=== PATIENT | female | born 1975 | race Caucasian/White ===

== ENCOUNTER → 2018-04-27 | Outpatient (CLI) | payer MEDICAID, OTHER ==
--- NOTE | 2018-04-27 13:51 | REP ---
Chest two views HISTORY: Shortness of breath Comparison: 05/14/2015 The lungs are clear. The heart is normal in size. The pulmonary vasculature is normal in appearance. The bony structure is intact. IMPRESSION: No acute disease. Electronically Signed by Jadon Solano MD 04/27/2018 01:43 P
== END ==
LOC: M LRY 13:05
PROVIDERS: ATTEND Physician Assistant
DX: R05 Cough (principal)

== ENCOUNTER → 2019-01-11 | Outpatient (CLI) | payer OTHER ==
--- NOTE | 2019-01-11 14:59 | REP ---
Cervical spine seven views: There are no comparison studies. Vertebral body heights are not alignment are normal C1-C7. T1 is obscured by the shoulders. On the lateral views. There is no listhesis on flexion or extension. There is degenerative disc disease at multiple levels from C4-C7. The prevertebral soft tissues are unremarkable. Facets are normally aligned. The odontoid view is unremarkable. There is mild bony foraminal encroachment from uncinate spurring on the left at C 05/06 and on the right at C5-6. Impression: Multilevel degenerative disc disease. Mild bilateral bony foraminal encroachment from uncinate spurring at C5-6. T1 is obscured by the shoulders. Otherwise, negative C-spine. Electronically Signed by Wilberto Boyd MD 01/11/2019 02:50 P
== END ==
LOC: M LRY 10:05
PROVIDERS: ATTEND Physician Assistant Medical
DX: M50.30 Other cervical disc degeneration, unspecified cervical region (principal)

== ENCOUNTER → 2020-07-12 | Outpatient (REF) | payer OTHER, MEDICAID | LOC: M SFHCWAGY 13:18 | PROVIDERS: ATTEND Nurse Practitioner Family | DX: Z12.4 Encounter for screening for malignant neoplasm of cervix (principal); Z11.3 Encounter for screening for infections with a predominantly sexual mode of transmission; Z77.9 Other contact with and (suspected) exposures hazardous to health ==

== ENCOUNTER 2021-12-20 23:07 | Emergency (ER) | payer OTHER, MEDICAID ==
[~2021-12-20] VITALS: Ht 165.1 cm; Wt 69.3 kg
[2021-12-20] MEDS ORDERED: CLAR10CA3 PO (23:17)
[2021-12-20] MEDS ORDERED: BUSP5TA PO (23:17)
[2021-12-20] MEDS ORDERED: PARO30TA3 PO (23:17)
[2021-12-21 00:33] LABS: ALBUMIN 3.7 GM/DL (3.2-5.2); ALT/SGPT 146 U/L (12-78); BILIRUBIN,DIRECT 0.4 MG/DL (0.0-0.2); BILIRUBIN,TOTAL 0.6 MG/DL (0.2-1.0); BLOOD UREA NITROGEN 13 MG/DL (7-18); CALCIUM LEVEL 8.7 MG/DL (8.5-10.1); CARBON DIOXIDE LEVEL 28 MEQ/L (21-32); CHLORIDE LEVEL 104 MEQ/L (98-107); CREATININE FOR GFR 0.62 MG/DL (0.55-1.30); GLOMERULAR FILTRATION RATE > 60.0 (>58); GLUCOSE, FASTING 113 MG/DL (70-100); LIPASE 88 U/L (73-393); SODIUM LEVEL 136 MEQ/L (136-145); TOTAL PROTEIN 7.2 GM/DL (6.4-8.2)
[2021-12-21 00:37] LABS: BASO % 0.3 % (0.0-1.0); EOS % 0.2 % (0.0-3.0); HEMATOCRIT 36.5 % (36.0-47.0); LYMPH % 7.4 % (24.0-44.0); MEAN CORPUSCULAR HEMOGLOBIN 32.3 pg (27.0-33.0); MEAN CORPUSCULAR HGB CONC 32.9 g/dl (32.0-36.5); MEAN CORPUSCULAR VOLUME 98.1 fl (80.0-96.0); MONO # 0.5 10^3/uL (0.0-0.8); MONO % 3.5 % (2.0-8.0); NEUTROPHILS # 12.1 10^3/uL (1.5-8.5); NEUTROPHILS % 88.3 % (36.0-66.0); PLATELET COUNT, AUTOMATED 278 10^3/uL (150-450); RED BLOOD COUNT 3.72 10^6/uL (4.00-5.40); WHITE BLOOD COUNT 13.7 10^3/uL (4.0-10.0)
[2021-12-21] MEDS ORDERED: PIPERACILLIN/TAZOBACTAM SOD 3.375 GM in D5W MINI-BAG PLUS 50 ML IV ONE (02:15)
[2021-12-21] MEDS ORDERED: MORPHINE 4 MG/ML 1ML VIAL/SYRINGE IV PRN (02:15)
[2021-12-21] MEDS ORDERED: NS 1,000 ML IV ONE (02:15)
[2021-12-21] MEDS ORDERED: ONDANSETRON 4MG 2ML VIAL IV ONE (02:15)
[2021-12-21 02:52] LABS: HCG, SERUM QUALITATIVE NEGATIVE (NEGATIVE)
[2021-12-21 03:06] LABS: RSV AMPLIFICATION NEGATIVE (NEGATIVE)
[2021-12-21] MEDS ORDERED: HOME MED LIST COMPLETE! XX SCH (03:35)
[2021-12-21] MEDS ORDERED: diphenhydrAMINE 50MG/ML VIAL (J1200) IV ONE (04:30)
[2021-12-21] MEDS ORDERED: CEFEPIME HCL 2 GM in D5W MINI-BAG PLUS 50 ML IV ONE (05:05)
[2021-12-21] MEDS ORDERED: metroNIDAZOLE 500 MG in IV 1 EA IV ONE (05:05)
[2021-12-21 13:00] VITALS: BP 124/54
== END 2021-12-21 13:04 | disposition short-term general hospital (02) ==
LOC: M ED 12-21 01:00
DX: K83.09 Other cholangitis (principal); F41.1 Generalized anxiety disorder; F32.9 Major depressive disorder, single episode, unspecified; Z87.891 Personal history of nicotine dependence; Z83.79 Family history of other diseases of the digestive system; Z79.899 Other long term (current) drug therapy; Z88.2 Allergy status to sulfonamides
CPT/HCPCS: 36415; 76705; 80053; 81000; 81001; 81015; 82248; 83605; 83690; 84703; 85025; 87040; 87086; 87631; 96361; 96365; 96366; 96368; 96375; 99285; J0692; J1200; J2270; J2405; J2543

== ENCOUNTER → 2022-11-24 | Outpatient (CLI) | payer OTHER ==
[~2022-11-24] MED LIST: BUSP5TA PO; CLAR10CA3 PO; PARO30TA3 PO
== END ==
LOC: M WHC 12:34
PROVIDERS: ATTEND Physician Assistant
DX: R22.2 Localized swelling, mass and lump, trunk (principal)

== ENCOUNTER → 2022-12-09 | Outpatient (CLI) | payer OTHER ==
[~2022-12-09] MED LIST changes: +LIDOCAINE 1% MDV 20ML VIAL As Ordered ONE
[2022-12-09 14:05] VITALS: TEMP 97.2
[2022-12-09 15:54] VITALS: BP 142/78; O2SAT 98
== END ==
LOC: M IRPRO 13:51
PROVIDERS: ATTEND Physician Assistant
DX: N63.32 Unspecified lump in axillary tail of the left breast (principal); R92.8 Other abnormal and inconclusive findings on diagnostic imaging of breast; R10.84 Generalized abdominal pain

== ENCOUNTER → 2022-12-09 | Outpatient (CLI) | payer OTHER ==
[~2022-12-09] MED LIST changes: -LIDOCAINE 1% MDV 20ML VIAL As Ordered ONE
== END ==
LOC: M WHC 15:59
PROVIDERS: ATTEND Physician Assistant
DX: R22.32 Localized swelling, mass and lump, left upper limb (principal); Z53.9 Procedure and treatment not carried out, unspecified reason

== ENCOUNTER → 2023-11-25 | Outpatient (REF) | payer OTHER, MEDICAID | LOC: M LAB REF 17:59 | PROVIDERS: ATTEND Nurse Practitioner Family | DX: R19.7 Diarrhea, unspecified (principal) ==

== ENCOUNTER → 2023-12-28 | Outpatient (CLI) | payer OTHER ==
[~2023-12-28] MED LIST changes: +ACYC1CAP20 PO; +ELDE350C PO; +NOXI1TAB PO; +VITA500C24 PO
== END ==
LOC: M RAD 08:02
PROVIDERS: ATTEND Physician Assistant
DX: Z87.891 Personal history of nicotine dependence (principal); R91.8 Other nonspecific abnormal finding of lung field

== ENCOUNTER 2024-01-19 15:34 | Emergency (ER) | payer OTHER ==
[~2024-01-19] VITALS: Ht 162.6 cm; Wt 72.7 kg
[2024-01-19] MEDS ORDERED: IBUP-1022 PO (19:00)
[2024-01-19 19:15] VITALS: BP 128/75; TEMP 98.2; O2SAT 100
[2024-01-19] MEDS: IBUPROFEN 600MG TAB PO ONE (19:17)
== END 2024-01-19 19:21 | disposition home or self-care (01) ==
LOC: M ED 15:34
DX: S90.31XA Contusion of right foot, initial encounter (principal); W20.8XXD Other cause of strike by thrown, projected or falling object, subsequent encounter; F10.10 Alcohol abuse, uncomplicated; F12.10 Cannabis abuse, uncomplicated; Y92.009 Unspecified place in unspecified non-institutional (private) residence as the place of occurrence of the external cause; Y93.89 Activity, other specified; Y99.9 Unspecified external cause status; Z88.2 Allergy status to sulfonamides; Z79.1 Long term (current) use of non-steroidal anti-inflammatories (NSAID); Z79.899 Other long term (current) drug therapy

== ENCOUNTER 2024-02-01 08:06 | Day surgery (SDC) | payer OTHER ==
[~2024-02-01] VITALS: Ht 162.6 cm; Wt 74.4 kg
[~2024-02-01 08:06] MED LIST changes: +IBUP-1022 PO; +NS 250 ML IV ONE
[2024-02-01] MEDS ORDERED: LIDOCAINE 2% 100MG/5ML SDV (FOR ANES.) As Ordered ONE (09:45)
[2024-02-01] MEDS ORDERED: propofoL 200 MG/20 ML VIAL As Ordered ONE (09:45)
[2024-02-01] MEDS ORDERED: GLYCOPYRROLATE INJ 0.2 MG/ML 2 ML VIAL As Ordered ONE (09:57)
[2024-02-01 10:09] VITALS: TEMP 97.7
[2024-02-01 10:31] VITALS: BP 134/80; O2SAT 100
== END 2024-02-01 10:37 | disposition home or self-care (01) ==
LOC: M OPP 08:06
PROVIDERS: ATTEND Internal Medicine Gastroenterology
DX: K58.0 Irritable bowel syndrome with diarrhea (principal); D12.0 Benign neoplasm of cecum; R15.9 Full incontinence of feces; K64.8 Other hemorrhoids; E04.2 Nontoxic multinodular goiter; Z79.899 Other long term (current) drug therapy; Z87.891 Personal history of nicotine dependence; Z88.2 Allergy status to sulfonamides
CPT/HCPCS: 45380; 45385; 88305; J1596

== ENCOUNTER → 2024-07-26 | Outpatient (CLI) | payer OTHER ==
[~2024-07-26] MED LIST changes: -NS 250 ML IV ONE
== END ==
LOC: M RAD 16:06
PROVIDERS: ATTEND Nurse Practitioner Family
DX: E04.2 Nontoxic multinodular goiter (principal)

== ENCOUNTER → 2025-04-09 | Outpatient (REF) | payer OTHER ==
[~2025-04-09] MED LIST changes: -IBUP-1022 PO; +IBUP600T42 PO
== END ==
LOC: M LAB REF 14:31
PROVIDERS: ATTEND Nurse Practitioner Family
DX: R19.7 Diarrhea, unspecified (principal)